=== PATIENT | male | born 1985 | race Two or more races ===

== ENCOUNTER 2020-06-28 01:45 | Emergency (ER) | payer SELFPAY ==
[~2020-06-28] VITALS: Ht 177.8 cm; Wt 86.2 kg
[2020-06-28 02:31] LABS: Basophils # (auto) 0 10 ^3/uL (0-0.2); Basophils % (auto) 0.3 % (0.0-2.0); Eosinophils # (auto) 0.1 10 ^3/uL (0-0.8); Eosinophils % (auto) 1.1 % (0.0-7.0); Hematocrit 49.5 % (41.0-53.0); Hemoglobin 16.8 g/dL (13.5-17.5); Lymphocytes # (auto) 1.7 10 ^3/uL (0.4-5.4); Lymphocytes % (auto) 16.4 % (10.0-50.0); Mean Corpuscular Volume 97.1 fL (80.0-100.0); Monocytes # (auto) 0.3 10 ^3/uL (0-1.3); Monocytes % (auto) 2.7 % (0.0-12.0); Neutrophils # (auto) 8.1 10 ^3/uL (1.6-8.6); Neutrophils % (auto) 79.5 % (37.0-80.0); Nucleated Red Blood Cells % 0.1 %; Platelet Count (auto) 269 10^3/uL (140-450); Red Blood Cells 5.09 10^6/uL (4.5-5.90); Red Cell Distribution Width 13.1 % (11.8-14.3); White Blood Cell 10.2 10^3/uL (4.4-10.8)
[2020-06-28] MEDS ORDERED: ONDANSETRON HCL 4 MG/2 ML VIAL ONE (02:44)
[2020-06-28] MEDS ORDERED: ACYCLOVIR SOD IV ONE (02:45)
[2020-06-28] MEDS ORDERED: ONDANSETRON HCL 4 MG/2 ML VIAL IV ONE (02:45)
[2020-06-28] MEDS ORDERED: SODIUM CHLORIDE 0.9% IV ONE (02:45)
[2020-06-28] MEDS ORDERED: SODIUM CHLORIDE 0.9% 1,000 ML IV ONE (02:45)
[2020-06-28 02:50] LABS: Alanine Aminotransferase 47 U/L (16-61); Albumin 3.9 g/dL (3.4-5.0); Anion Gap 8 (5-15); Aspartate Aminotransferase 30 U/L (15-37); BUN/Creatinine Ratio 11.8; Blood Urea Nitrogen 8 mg/dL (7-18); Calcium 8.5 mg/dL (8.5-10.1); Carbon Dioxide 19 mmol/L (21-32); Chloride 111 mmol/L (98-107); GFR African American 171 mL/min; GFR Non-African American 141 mL/min; Glucose 124 mg/dL (74-106); Potassium 3.9 mmol/L (3.5-5.1); Salicylate < 1.7 mg/dL (2.8-20.0); Sodium 138 mmol/L (136-145)
[2020-06-28 02:53] LABS: Alkaline Phosphatase 67 U/L (45-117); Bilirubin, Total 0.2 mg/dL (0.2-1.0); Total Protein 7.8 g/dL (6.4-8.2)
[2020-06-28 02:54] LABS: Acetaminophen < 2.0 ug/mL (10-30)
[2020-06-28] MEDS ORDERED: ACETAMINOPHEN 500 MG TAB PO ONE (08:30)
[2020-06-28 09:24] VITALS: BP 116/62
== END 2020-06-28 12:08 | disposition home or self-care (01) ==
LOC: ER 01:45 → EDBD 01:45 → ER 12:08
DX: F10.920 Alcohol use, unspecified with intoxication, uncomplicated (principal)
CPT/HCPCS: 36415; 80053; 80320; 80329; 85025; 96361; 96374; 99283; J0133; J2405; J7030